=== PATIENT | female | born 1975 | race Caucasian/White ===

== ENCOUNTER 2016-12-16 15:41 | Emergency (ER) | payer OTHER ==
[2016-12-16 15:50] VITALS: BP 118/74; PULSE 83; RESP 16; TEMP 99; O2SAT 97
--- NOTE | 2016-12-16 17:09 | UCPHY ---
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 Review of systems As per HPI General no fever no chills no weakness HEENT no eye pain no eye discharge. 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 Smoking Status: Never smoked Physical Exam: 41-year-old female Alert and oriented nontoxic appearance, no acute distress afebrile Atraumatic normocephalic Extraocular muscles intact, anicteric Nares mild yellowish discharge Oropharynx mild erythema no tonsillar swelling no exudate no uvular deviation, tolerating own secretions Neck supple no lymphadenopathy Lungs clear to auscultation bilaterally Heart regular rate and rhythm Abdomen normoactive bowel sounds soft nontender Extremities no cyanosis clubbing or edema Skin no rash Constitutional: Initial Vital Signs Temperature (C) 37.2 C 12/16/16 15:47 Heart Rate 83 12/16/16 15:47 Respiratory Rate 16 12/16/16 15:47 Blood Pressure 118/74 12/16/16 15:47 O2 Sat (%) 97 12/16/16 15:47 O2 Delivery Mode Room Air Allergies/Adverse Reactions: No Known Allergies Allergy (Unverified 12/16/16 15:47) Home Medications: Medication Instructions Recorded Oseltamivir Phosphate [Tamiflu 75 75 mg PO BID #10 cap 12/16/16 mg (*)] Medical Decision Making ED Course/Re-evaluation: Patient seen and evaluated for body aches cough fevers chills nasal congestion Rapid flu negative strep negative Patient's history and exam consistent with flu-like illness Impression Influenza Plan Tamiflu Follow up with primary care physician - Data Points Laboratory Results: 12/16/16 12/16/16 12/16/16 Unknown 15:52 15:52 Influenza Typ A,B (DFA) NEGATIVE FOR FLU (NEGATIVE) Group A Strep Screen NEGATIVE (NEGATIVE) Group A Strep DNA Pending Departure - Departure Disposition: Home, Routine, Self-Care Clinical Impression: Flu-like symptoms Condition: Good Instructions: Influenza (ED) Referrals: NONE *PRIMARY CARE P,. [Primary Care Provider] - As per Instructions Prescriptions: Oseltamivir Phosphate [Tamiflu 75 mg (*)] 75 mg PO BID #10 cap - PQRS PQRS Measurement: na
== END 2016-12-16 17:29 | disposition home or self-care (01) ==
LOC: CED 15:41
DX: R05 Cough (principal); R50.9 Fever, unspecified; M79.1 Myalgia; R09.81 Nasal congestion
CPT/HCPCS: 87400-PO; 87880-PO; G0463-PO